=== PATIENT | male | born 1945 | race Caucasian/White ===

== ENCOUNTER 2018-07-09 17:39 | Emergency (ER) | payer MEDICARE, BC ==
[~2018-07-09] VITALS: Ht 172.7 cm; Wt 62.0 kg
[2018-07-09] MEDS ORDERED: proparacaine 0.5% ophthalmic drops 15ml RIGHTEYE ONE (18:30)
[2018-07-09 20:08] VITALS: BP 144/73
[2018-07-09] MEDS ORDERED: erythromycin ophthalmic ointment 1gm tube RIGHTEYE ONE (20:20)
[2018-07-09] MEDS ORDERED: ERYT1OIN6 RIGHTEYE (20:30)
== END 2018-07-09 20:42 | disposition home or self-care (01) ==
LOC: ER 17:39
DX: S05.31XA Ocular laceration without prolapse or loss of intraocular tissue, right eye, initial encounter (principal); F03.90 Unspecified dementia, unspecified severity, without behavioral disturbance, psychotic disturbance, mood disturbance, and anxiety; Z98.41 Cataract extraction status, right eye; Z98.42 Cataract extraction status, left eye; W22.8XXA Striking against or struck by other objects, initial encounter; Y93.89 Activity, other specified; Y92.89 Other specified places as the place of occurrence of the external cause; Y99.8 Other external cause status
CPT/HCPCS: 99283

== ENCOUNTER 2019-04-30 15:08 | Emergency (ER) | payer MEDICARE, BC ==
[~2019-04-30] VITALS: Ht 177.8 cm; Wt 68.2 kg
[2019-04-30 15:15] VITALS: BP 139/76
--- NOTE | 2019-04-30 15:28 | NUR ---
STATES GROUND LEVEL FALL AT HOME YESTERDAY BRIGITTE, STRIKING LEFT SIDE OF CHEST AND LEFT CHEEK ON FLOOR. DENIES LOSS OF CONSCIOUSNESS. C/O PAIN TO LEFT CHEST WALL AND LEFT LATERAL CHEEK AREA. NO INJURIES NOTED.
== END 2019-04-30 16:27 | disposition home or self-care (01) ==
LOC: ER 15:09
DX: S20.212A Contusion of left front wall of thorax, initial encounter (principal); F03.90 Unspecified dementia, unspecified severity, without behavioral disturbance, psychotic disturbance, mood disturbance, and anxiety; F32.9 Major depressive disorder, single episode, unspecified; Z98.890 Other specified postprocedural states; W01.0XXA Fall on same level from slipping, tripping and stumbling without subsequent striking against object, initial encounter; Y93.89 Activity, other specified; Y92.89 Other specified places as the place of occurrence of the external cause; Y99.8 Other external cause status
CPT/HCPCS: 71101; 99284

== ENCOUNTER 2019-10-17 16:17 | Emergency (ER) | payer MEDICARE, BC ==
[~2019-10-17] VITALS: Ht 180.3 cm; Wt 77.7 kg
[~2019-10-17 16:17] MED LIST: QUET50TA22 PO
[2019-10-17 17:53] VITALS: BP 103/64
== END 2019-10-17 18:20 | disposition home or self-care (01) ==
LOC: ER 16:17
DX: G30.9 Alzheimer's disease, unspecified (principal); F02.80 Dementia in other diseases classified elsewhere, unspecified severity, without behavioral disturbance, psychotic disturbance, mood disturbance, and anxiety; F32.9 Major depressive disorder, single episode, unspecified
CPT/HCPCS: 93005; 99284